=== PATIENT | female | born 1990 | race Caucasian/White ===

== ENCOUNTER 2019-06-30 21:46 | Emergency (ER) | payer BC ==
[~2019-06-30] VITALS: Ht 167.6 cm; Wt 109.5 kg
[~2019-06-30 21:46] MED LIST: MOTRIN 600600 MG/TAB PO; NORCO 325 MG-51 TAB PO; PERCOCET 325 MG1 TA2 PO; PRENATAL1 TA1 PO; SENOKOT S 50 MG1 TAB PO; ZANTAC 150MG T150 MG PO
[2019-06-30] MEDS ORDERED: CYMBALTA 20MG20 MG PO (22:01)
[2019-06-30 22:02] VITALS: BP 120/72; TEMP 98.7
[2019-06-30 22:28] LABS: BASO % 0.3 % (0.0-2.0); EOS # 0.1 (0.0-0.7); EOS % 0.5 % (0-4.0); GRAN # 10.1 (1.4-6.5); GRAN % 76.4 % (42.2-75.2); HEMATOCRIT 39.5 % (37.0-47.0); HEMOGLOBIN 13.4 g/dl (12.5-16.0); LYMPH # 1.9 (1.2-3.4); LYMPH % 14.6 % (20.0-51.0); MEAN CELL VOLUME 87 fl (80.0-100.0); MEAN CORPUSCULAR HEMOGLOBIN 29 pg (27.0-31.0); MEAN CORPUSCULAR HGB CONC 34 g/dl (33.0-37.0); MONO % 7.9 % (1.7-9.3); PLATELET COUNT 264 K/mm3 (130-400); RED BLOOD COUNT 4.56 M/mm3 (4.10-5.30)
[2019-06-30 22:35] LABS: ALANINE AMINOTRANSFERASE 19 U/L (9-52); ALBUMIN 4.6 gm/dL (3.5-5.0); ALKALINE PHOSPHATASE 72 U/L (50-136); ANION GAP 14 mmol/L (7-16); AST,SGOT 20 U/L (15-37); BILIRUBIN,TOTAL 0.7 mg/dL (0.0-1.0); BLOOD UREA NITROGEN 9 mg/dL (7-17); CALCIUM 9.5 mg/dL (8.4-10.2); CARBON DIOXIDE 23 mmol/L (22-30); CHLORIDE 103 mmol/L (98-107); CREATININE, serum 0.65 (0.52-1.25); GLUCOSE 99 mg/dL (74-106); SODIUM 140 mmol/L (137-145); TOTAL PROTEIN 8.1 gm/dL (6.4-8.2)
[2019-06-30 22:50] LABS: TROPONIN-I < 0.012 ng/mL (0.000-0.035)
[2019-07-01 01:16] VITALS: PULSE 98
== END 2019-07-01 01:14 | disposition home or self-care (01) ==
LOC: COL.ER 21:46
PROVIDERS: Nurse Practitioner
DX: R07.89 Other chest pain (principal); Z90.49 Acquired absence of other specified parts of digestive tract; Z87.891 Personal history of nicotine dependence
CPT/HCPCS: J1100; Q9967

== ENCOUNTER 2020-04-28 10:56 | Inpatient (IN) | payer BC ==
[2020-04-28] VITALS (39 sets, daily range): BP systolic 76–151; BP diastolic 32–93; PULSE 61–104; TEMP 98.1–98.5
[~2020-04-28] VITALS: Ht 165.2 cm; Wt 123.2 kg
[~2020-04-28 10:56] MED LIST changes: +CYMBALTA 20MG20 MG PO
[2020-04-28] MEDS ORDERED: NATURAL IRON65 MG (11:11)
[2020-04-28] MEDS ORDERED: ZOLOFT 100MG100 MG PO (11:11)
--- NOTE | 2020-04-28 13:13 | NUR ---
Dr. Irwin monitoring pt from home. Called to give orders to start Pitocin per protocol to increase frequency of contractions.
[2020-04-28 13:17] LABS: BASO % 0.3 % (0.0-2.0); EOS % 0.2 % (0-4.0); GRAN # 9.1 (1.4-6.5); GRAN % 79.8 % (42.2-75.2); HEMOGLOBIN 12.3 g/dl (12.5-16.0); LYMPH # 1.5 (1.2-3.4); LYMPH % 12.9 % (20.0-51.0); MEAN CELL VOLUME 87 fl (80.0-100.0); MEAN CORPUSCULAR HEMOGLOBIN 30 pg (27.0-31.0); MEAN CORPUSCULAR HGB CONC 34 g/dl (33.0-37.0); MEAN PLATELET VOLUME 10.2 fl (7.4-10.4); MONO # 0.7 (0.1-0.6); MONO % 6.5 % (1.7-9.3); PLATELET COUNT 225 K/mm3 (130-400); RED BLOOD COUNT 4.14 M/mm3 (4.10-5.30); REDCELL DISTRIBUTION WIDTH-CV 14.6 % (11.5-14.5)
[2020-04-28 13:20] LABS: HEMATOCRIT 36.1 % (37.0-47.0)
[2020-04-28 16:15] LABS: BASO # 0.1 (0.0-0.2); BASO % 0.3 % (0.0-2.0); EOS % 0.2 % (0-4.0); GRAN % 84.1 % (42.2-75.2); LYMPH # 1.5 (1.2-3.4); LYMPH % 8.7 % (20.0-51.0); MEAN CELL VOLUME 90 fl (80.0-100.0); MEAN CORPUSCULAR HGB CONC 33 g/dl (33.0-37.0); MONO % 6.2 % (1.7-9.3); PLATELET COUNT 236 K/mm3 (130-400); RED BLOOD COUNT 3.42 M/mm3 (4.10-5.30); REDCELL DISTRIBUTION WIDTH-CV 14.6 % (11.5-14.5)
[2020-04-28 16:17] LABS: HEMATOCRIT 30.7 % (37.0-47.0); HEMOGLOBIN 10.1 g/dl (12.5-16.0); MEAN CORPUSCULAR HEMOGLOBIN 30 pg (27.0-31.0)
--- NOTE | 2020-04-28 18:19 | NUR ---
1400 - Dr. Irwin to pt bedside. Discussed AROM with pt, pt agrees. AROM by Dr. Irwin at 1401, copious amounts of thick mec fluid noted. Fluid gushes x3 as physician checks cerivx and position. 1404 - Difficulty tracing FHT after ROM, FHR noted as 50s to 70s, maternal pusle 80s to 90s. Dr. Irwin remains at bedside, checking position, states that she has a prolapsed cord. Dr. Irwin states she is able to reduce the cord to behind the infant's head. 1405 - FSE placed by Dr. Irwin. FHR not well traced by either FSE or external monitor. FHR remains tracing 50s to 70s with physician hand at cervix. Nhi Mccray RN and Nhi Das RN to bedside to assist. 1406 - Pt repositioned RL with continued head stimulation by physician. 1407 - Pt repositioned LL with continued head stimulation by physician. 1408 - Pt returned to semi-ferreira's position. 1409 - Decision by Dr. Irwin to go to . Physician hand removed from cervix, physician to OR. Hand to head by this nurse, this nurse remains on bed. 1411 - Pt disconnected from monitors and taken to OR via bed by Nhi Mccray RN and Nhi Das, RN. 1414 - Pt transferred to OR table, Fowler catheter dislodged in the process. Pt secured to table with strap across thighs and arm boards. Abdominal prep done by Alejandro Marin RN. Pt placed under general anesthesia by Courtney Henderson CRNA. 1419 - Infant delivered. Care of infant transferred to Nhi Lu RN of nursery. 1420 - Placenta delivered. Cord gasses and umbilical cord blood collected and handed off to RT. 1520 - Fowler placed in OR after procedure, prior to moving to PACU. Dark, clear yellow urine return noted. 1552 - Pt BP continues to be 80s/30-40s. 10mg ephedrine given per Dr. Irwin. 1603 - BP increased, but remains 80s/40s. 10mg ephedrine repeated. 1605 - BP increased to 111/60, pt remains feeling well, states she is just "very sleepy". Pulse and respirations remain stable. 1620 - BP again 80s/40s. All other vitals and pt condition stable. Vaginal bleeding scant, fundus remains firm at umbilicus. Fluid bolus given. 1635 - BP stable at 100s/50s. Pt transferred to room 213 via bed. 1715 - BP initially stable in room, then 113/38 and 93/42. Urine output only 25ml in PACU. Fowler noted to have hole in tubing. Fowler replaced, pericare provided, bed pad and peripad changed. Dr. Irwin notified. Per physician, continue fluids at 125ml/hr, continue monitoring BP. No other orders at this time.
[2020-04-29] VITALS (7 sets, daily range): BP systolic 122–150; BP diastolic 61–77; PULSE 81–105; TEMP 97.9–98.7
--- NOTE | 2020-04-29 02:31 | NUR ---
PT OFFERED ADDITIONAL PAIN MEDS AT THIS TIME AND REFUSED.
[2020-04-29] MEDS ORDERED: PERCOCET 325 MG1 TA2 PO (16:33)
[2020-04-29] MEDS ORDERED: MOTRIN 800800 MG/TAB PO (16:33)
[2020-04-30 09:12] VITALS: BP 132/42; PULSE 78; TEMP 98.2
--- NOTE | 2020-04-30 10:22 | NUR ---
Initial visit attempt; Family resting, Environmental Marketing Representative left card of congratulations for the of their son and information regarding the availability of spiritual care at our hospital.
[2020-04-30 12:05] VITALS: BP 110/64; PULSE 78; TEMP 98.1
[2020-04-30 16:10] VITALS: BP 110/58; PULSE 76; TEMP 98.1
[2020-04-30 20:40] VITALS: BP 136/64; PULSE 105; TEMP 98.5
[2020-05-01 08:00] VITALS: BP 114/64; PULSE 76; TEMP 98.2
== END 2020-05-01 12:48 | disposition home or self-care (01) | DRG 788 ==
LOC: LDRO 10:56 → LDR 11:00 → OB 11:00
PROVIDERS: ADMIT Obstetrics & Gynecology
PROC: 10D00Z1 Extraction of Products of Conception, Low, Open Approach (ICD-10-PCS; principal; 2020-04-28)
DX: O99.824 Streptococcus B carrier state complicating childbirth (principal); Z3A.40 40 weeks gestation of pregnancy; Z37.0 Single live birth; O99.214 Obesity complicating childbirth; O99.344 Other mental disorders complicating childbirth; F32.9 Major depressive disorder, single episode, unspecified; O69.0XX0 Labor and delivery complicated by prolapse of cord, not applicable or unspecified; O76 Abnormality in fetal heart rate and rhythm complicating labor and delivery; O77.0 Labor and delivery complicated by meconium in amniotic fluid; O99.62 Diseases of the digestive system complicating childbirth; K21.9 Gastro-esophageal reflux disease without esophagitis; G43.909 Migraine, unspecified, not intractable, without status migrainosus; J45.909 Unspecified asthma, uncomplicated; O99.52 Diseases of the respiratory system complicating childbirth; O99.354 Diseases of the nervous system complicating childbirth
CPT/HCPCS: J0330; J0690; J1885; J2270; J2590; J2704; J2795; J3010; J7120